=== PATIENT | male | born 1965 | race Caucasian/White ===

== ENCOUNTER 2017-05-14 17:00 | Emergency (ER) | payer BC ==
[2017-05-14 18:14] LABS: ABS Basophils 0 10^3/ul (0-0.2); ABS Eosinophils 0.1 10^3/ul (0-0.6); ABS Monocytes 0.4 10^3/ul (0-0.8); ABS Nucleated RBC 0 10^3/ul; Eosinophil % 2.4 % (0-6); Hematocrit 24 % (42-52); Hemoglobin 9.1 g/dl (14.0-18.0); Lymphocyte % 43.8 % (25-47); Mean Corpuscular HGB Conc 37 g/dl (31-36); Mean Corpuscular Hemoglobin 34 pg (27-31); Mean Corpuscular Volume 92 fL (80-94); Mean Platelet Volume 8 um3 (7.4-10.4); Nucleated Red Blood Cells % 0.1; Platelet Count 204 10^3/ul (150-450); Red Blood Count 2.66 10^6/ul (4.0-5.4); Red Cell Distribution Width 12 % (10.5-15); White Blood Count 4.6 10^3/ul (3.5-10.8)
[2017-05-14 18:22] LABS: INR 1.05 (0.77-1.02)
[2017-05-14 18:28] LABS: EGFR Non-African American 82.6 (>60)
[2017-05-14] MEDS ORDERED: NS 0.9% 1000 ML* 1,000 ML IV ONE (18:48)
--- NOTE | 2017-05-14 19:29 | ED ---
Destin Hamm Jennifer, scribed for Damon Rodriguez MD on 05/14/17 at 1823 . GI/ HPI - HPI Summary HPI Summary: The patient is a 52 year old male who complains of blood in the stool for the past four days. The bloody stools are intermittent and stopped a few times. The patient has had three bloody bowel movements today. He denies black bowel movement and any pain. The patient states he drinks one drink per day. - History of Current Complaint Chief Complaint: EDGIBleed Time Seen by Provider: 05/14/17 18:15 Stated Complaint: ABNORMAL LABS Hx Obtained From: Patient Onset/Duration: Started Days Ago - four days Timing: Intermittent Severity: Mild Current Severity: Mild Pain Intensity: 0 Associated Signs and Symptoms: Positive: Blood w/Stool. Negative: Black Tarry Stool Aggravating Factor(s): Nothing Alleviating Factor(s): Nothing - Allergy/Home Medications Allergies/Adverse Reactions: Allergies Allergy/AdvReac Type Severity Reaction Status Date / Time No Known Allergies Allergy Verified 03/03/13 10:02 PMH/Surg Hx/FS Hx/Imm Hx Endocrine/Hematology History: Reports: Hx Diabetes GI History: Reports: Hx Diverticulosis - Surgical History Surgery Procedure, Year, and Place: Appendectomy Infectious Disease History: No Infectious Disease History: Denies: Traveled Outside the [place] in Last 30 Days - Family History Known Family History: Positive: Diabetes - Social History Alcohol Use: Daily Review of Systems Negative: Fever Negative: Abdominal Pain Genitourinary: Negative - Black tarry stools, Other - Bloody stool All Other Systems Reviewed And Are Negative: Yes Physical Exam - Summary Physical Exam Summary: Appearance: The patient is well-nourished in no acute distress and in no acute pain. Skin: The skin is warm and dry and skin color reflects adequate perfusion. HEENT: ~The head is normocephalic and atraumatic. The pupils are equal and reactive. The conjunctivae are clear and without drainage. ~Nares are patent and without drainage. ~Mouth reveals moist mucous membranes and the throat is without erythema and exudate. ~The external ears are intact. The ear canals are patent and without drainage. The tympanic membranes are intact. Neck: the neck is supple with full range of motion and non-tender. There are no carotid bruits. ~There is no neck vein distension. Respiratory: Chest is non-tender. ~Lungs are clear to auscultation and breath sounds are symmetrical and equal. Cardiovascular: Heart is regular rate and rhythm. ~There is no murmur or rub auscultated. ~~There is no peripheral edema and pulses are symmetrical and equal. Abdomen: The abdomen is soft and non-tender. ~There are normal bowel sounds heard in all four quadrants and there is no organomegaly palpated. Musculoskeletal: There is no back tenderness noted. ~Extremities are non-tender with full range of motion. ~There is good capillary refill. ~There is no peripheral edema or calf tenderness elicited. Neurological: Patient is alert and oriented to person, place and time. ~The patient has symmetrical motor strength in all four extremities. ~Cranial nerves are grossly intact. Deep tendon reflexes are symmetrical and equal in all four extremities. Psychiatric: The patient has an appropriate affect and does not exhibit any anxiety or depression. Triage Information Reviewed: Yes Vital Signs On Initial Exam: Initial Vitals Temp Pulse Resp BP Pulse Ox 97.9 F 82 16 164/104 98 05/14/17 17:05 05/14/17 17:05 05/14/17 17:05 05/14/17 17:05 05/14/17 17:05 Vital Signs Reviewed: Yes Diagnostics - Vital Signs Vital Signs Temp Pulse Resp BP Pulse Ox 05/14/17 17:05 97.9 F 82 16 164/104 98 - Laboratory Lab Results: Lab Results 05/14/17 05/14/17 Range/Units 17:51 17:51 WBC 4.6 (3.5-10.8) 10^3/ul RBC 2.66 L (4.0-5.4) 10^6/ul Hgb 9.1 L (14.0-18.0) g/dl Hct 24 L (42-52) % MCV 92 (80-94) fL MCH 34 H (27-31) pg MCHC 37 H (31-36) g/dl RDW 12 (10.5-15) % Plt Count 204 (150-450) 10^3/ul MPV 8 (7.4-10.4) um3 Neut % (Auto) 43.7 (38-83) % Lymph % (Auto) 43.8 (25-47) % [place] % (Auto) 9.2 H (1-9) % Eos % (Auto) 2.4 (0-6) % Baso % (Auto) 0.9 (0-2) % Absolute Neuts (auto) 2.0 (1.5-7.7) 10^3/ul Absolute Lymphs (auto) 2.0 (1.0-4.8) 10^3/ul Absolute Monos (auto) 0.4 (0-0.8) 10^3/ul Absolute Eos (auto) 0.1 (0-0.6) 10^3/ul Absolute Basos (auto) 0 (0-0.2) 10^3/ul Absolute Nucleated RBC 0 10^3/ul Nucleated RBC % 0.1 Blood Type Pending Antibody Screen Pending Result Diagrams: 05/14/17 17:51 05/14/17 17:51 Lab Statement: Any lab studies that have been ordered have been reviewed, and results considered in the medical decision making process. GIGU Course/Dx - Course Course Of Treatment: Mr. Keyes presents with a drop in Hgb after 3-4 days of BRBPR. He is hemodynamically stable however he will need to be observed in the hospital with GI back-up. We don't have GI client service professional today and he is being transfered to [facility]. He has a history of diverticulosis and this is likely to be the cause. His BUN is normal. - Diagnoses Provider Diagnoses: GI bleed Discharge - Discharge Plan Condition: Good Disposition: ADMITTED TO OTHER HOSPITAL Discharge Disposition Comment: Transferred to [facility] in [place], [place]. Referrals: Alexander Murcia JR PA [Primary Care Provider] - Additional Instructions: Follow up with your primary care physician in three days. Return to the emergency department for any new or worsening symptoms. The documentation as recorded by the Destin woodson Jennifer accurately reflects the service I personally performed and the decisions made by me, Damon Rodriguez MD.
[2017-05-14 19:52] VITALS: BP 107/63
== END 2017-05-14 19:52 | disposition short-term general hospital (02) ==
LOC: ED 17:00
DX: K92.2 Gastrointestinal hemorrhage, unspecified (principal); Z90.89 Acquired absence of other organs
CPT/HCPCS: 36415; 80053; 85025; 85610; 85730; 86850; 86900; 86901; 96360; 99283